=== PATIENT | male | born 1970 | race Caucasian/White ===

== ENCOUNTER → 2016-03-18 | Outpatient (CLI) | payer OTHER ==
--- NOTE | 2016-03-18 13:51 | MA ---
Diagnostic Digital Mammogram bilateral male Breast Clinical Indications: Palpable thickening 12 o'clock periareolar location left breast tissue. Technique: Routine CC and mediolateral oblique views were obtained of each breast. This examination i s processed by the [employer] computer-aided detection system. Comparison: Baseline evaluation. Breast density: A; The breasts are almost entirely fatty. Findings: CAD was reviewed. There is some thickening associated with the left areola and superior periareolar location on the lef t. There are no parenchymal masses, clusters of microcalcifications, or axillary lymphadenopathy. Impression: Mild thickening of the left areola and superior periareola along the skin. Incomplete rehana dy pending subsequent ultrasound that was performed for further characterization. BI-RADS 0
--- NOTE | 2016-03-18 14:18 | US ---
Ultrasound left upper breast male patient History: Pain superior periareolar location left breast/chest wall tissue. Findings: Ultrasound over the area of tenderness and thickening demonstrates no evidence of underlyin g mass within the superior periareolar location of the left breast tissue. The superior areola and ad jacent skin appears to be thicker on the left when compared to the right side. Impression: 1. No underlying soft tissue mass within the chest wall/breast tissue on the left. Benign findings. B I-RADS 2 2. Thickening of the skin involving the superior periareolar location on the left when compared to th e right side. The patient reports underlying psoriatic arthritis condition. Clinical followup is recommended on all palpable nodules. Despite negative or benign imaging, if the palpable abnormality increases in size, additional imaging followup may be necessary or possibly ave gical consultation. The results of this study were reviewed with the patient.
== END ==
LOC: BMCIMAGING 13:20
PROVIDERS: ATTEND Family Medicine
DX: M79.9 Soft tissue disorder, unspecified (principal); N64.4 Mastodynia; Z80.3 Family history of malignant neoplasm of breast
CPT/HCPCS: G0204

== ENCOUNTER → 2016-05-05 | Outpatient (CLI) | payer OTHER | LOC: BMCIMAGING 09:18 | PROVIDERS: ATTEND Family Medicine | DX: M79.674 Pain in right toe(s) (principal); M19.071 Primary osteoarthritis, right ankle and foot ==

== ENCOUNTER 2018-01-26 04:13 | Emergency (ER) | payer OTHER ==
[2018-01-26] MEDS ORDERED: NS 1,000 ML IV ONE (04:27)
[2018-01-26] MEDS ORDERED: ONDANSETRON 4 MG/2 ML VIAL IVP ONE (04:32)
[2018-01-26] MEDS ORDERED: HYDROmorphONE/DILAUDID 2 MG/ML INJ IVP ONE (04:32)
--- NOTE | 2018-01-26 04:35 | EDPHY ---
H & P Stated Complaint: R flank pain, poss kidney stone, frequency Time Seen by Provider: 01/26/18 04:33 HPI/ROS: HPI CHIEF COMPLAINT: Urinary frequency, urinary pressure, right flank pain. HISTORY OF PRESENT ILLNESS: 47-year-old male, history of psoriatic arthritis, takes room air, presents emergency room with right flank pain started earlier this evening rather abrupt in onset right-sided flank sharp stabbing radiating to his right lower abdomen with associated 2 episodes of nausea vomiting. No diarrhea. No fever. Also earlier date urinary frequency urinary pressure. No history of kidney stones. Denies chest pain or shortness of breath. Past Medical History: Psoriatic arthritis on Humira Past Surgical History: Denies significant surgical history Social History: Denies drugs alcohol tobacco. Family History: Noncontributory ROS REVIEW OF SYSTEMS: 10 Systems were reviewed and negative with the exception of the elements mentioned in the history of present illness. Exam Constitutional appears well nontoxic no acute distress, triage nursing summary reviewed, vital signs reviewed, awake/alert. Eyes normal conjunctivae and sclera, EOMI, PERRLA. HENT normal inspection, atraumatic, moist mucus membranes, no epistaxis, neck supple/ no meningismus, no raccoon eyes. Respiratory clear to auscultation bilaterally, normal breath sounds, no respiratory distress, no wheezing. Cardiovascular rate normal, regular rhythm, no murmur, no edema, distal pulses normal. Gastrointestinal soft, non-tender, no rebound, no guarding, normal bowel sounds, no distension, no pulsatile mass. Genitourinary mild right CVA tenderness on exam. Musculoskeletal no midline vertebral tenderness, full range of motion, no calf swelling, no tenderness of extremities, no meningismus, good pulses, neurovascularly intact. Skin pink, warm, & dry, no rash, skin atraumatic. Neurologic awake, alert and oriented x 3, AAOx3, moves all 4 extremities equally, motor intact, sensory intact, CN II-XII intact, normal cerebellar, normal vision, normal speech. Psychiatric normal mood/affect. Heme/Lymph/Immune no lymphadenopathy. Differential diagnosis includes but is not limited to and in no particular order : Bowel obstruction, appendicitis, gallbladder disease, diverticulitis, colitis , enteritis, perforated viscus, gastritis, GERD, esophagitis, urinary tract infection, pyelonephritis, kidney stones Medical Decision Making: Plan for this patient IV establishment IV fluid bolus , IV Dilaudid 0.5 mg for pain control IV Zofran for nausea, CT scan abdomen pelvis without contrast for right flank pain. Re-evaluate. Re-evaluation: CT scan abdomen pelvis without contrast shows a right-sided UVJ stone 2 x 2 mm. Upstream hydronephrosis present. Called to me by Dr. Sanchez. Patient's blood work reviewed. Unremarkable. Urinalysis shows blood but no signs of infection. Patient is resting comfortably at this time 6:00 a.m.. He has no complaints. Denies chest pain shortness of breath or back pain or abdominal pain. Comfortable this time. Prescription provided for Flomax, Tyler, Zofran. Urine strainer provided. Recommend drinking lots of fluids Recommend return emergency room if worsening abdominal pain, fever, vomiting. Source: Patient - Personal History Current Tetanus Diphtheria and Acellular Pertussis (TDAP): Yes - Medical/Surgical History Hx Asthma: No Hx Chronic Respiratory Disease: No Hx Diabetes: No Hx Cardiac Disease: No Hx Renal Disease: No Hx Cirrhosis: No Hx Alcoholism: No Hx HIV/AIDS: No Hx Splenectomy or Spleen Trauma: No Other PMH: ARthitis, GERD - Social History Smoking Status: Never smoked Constitutional: Initial Vital Signs Temperature (C) 36.7 C 01/26/18 04:24 Heart Rate 68 01/26/18 04:24 Respiratory Rate 17 01/26/18 04:24 Blood Pressure 178/125 H 01/26/18 04:24 O2 Sat (%) 98 01/26/18 04:24 O2 Delivery Mode Room Air Allergies/Adverse Reactions: sulfasalazine [Sulfasalazine] Allergy (Intermediate, Verified 01/26/18 04:23) Home Medications: Medication Instructions Recorded LORazepam [Ativan 2 mg tab] 1 mg PO 06/07/12 Omeprazole [Prilosec 10 mg] 10 mg PO DAILY 06/07/12 Vitamins Unknown 06/07/12 Hydrocodone/APAP 5/325 [Tyler 1 - 2 tab PO Q4H PRN #10 tab 01/26/18 5/325] Ondansetron HCl [Zofran] 4 mg PO Q4-6PRN PRN #10 tablet 01/26/18 Tamsulosin HCl [Flomax] 0.4 mg PO DAILY #10 cap 01/26/18 Medical Decision Making - Data Points Laboratory Results: Laboratory Results 01/26/18 04:36 01/26/18 04:36 01/26/18 01/26/18 01/26/18 04:55 04:36 04:36 WBC 5.76 10^3/uL 10^3/uL (3.80-9.50) RBC 4.90 10^6/uL 10^6/uL (4.40-6.38) Hgb 15.6 g/dL g/dL (13.7-17.5) Hct 43.5 % % (40.0-51.0) MCV 88.8 fL fL (81.5-99.8) MCH 31.8 pg pg (27.9-34.1) MCHC 35.9 g/dL g/dL (32.4-36.7) RDW 11.8 % % (11.5-15.2) Plt Count 237 10^3/uL 10^3/uL (150-400) MPV 8.9 fL fL (8.7-11.7) Neut % (Auto) 50.9 % % (39.3-74.2) Lymph % (Auto) 38.7 % % (15.0-45.0) [place] % (Auto) 8.2 % % (4.5-13.0) Eos % (Auto) 1.4 % % (0.6-7.6) Baso % (Auto) 0.5 % % (0.3-1.7) Nucleat RBC Rel Count 0.0 % % (0.0-0.2) Absolute Neuts (auto) 2.93 10^3/uL 10^3/uL (1.70-6.50) Absolute Lymphs (auto) 2.23 10^3/uL 10^3/uL (1.00-3.00) Absolute Monos (auto) 0.47 10^3/uL 10^3/uL (0.30-0.80) Absolute Eos (auto) 0.08 10^3/uL 10^3/uL (0.03-0.40) Absolute Basos (auto) 0.03 10^3/uL 10^3/uL (0.02-0.10) Absolute Nucleated RBC 0.00 10^3/uL 10^3/uL (0-0.01) Immature Gran % 0.3 % % (0.0-1.1) Immature Gran # 0.02 10^3/uL 10^3/uL (0.00-0.10) Sodium 143 mEq/L mEq/L (135-145) Potassium 3.4 mEq/L L mEq/L (3.5-5.2) Chloride 105 mEq/L mEq/L (97-110) Carbon Dioxide 26 mEq/l mEq/l (22-31) Anion Gap 12 mEq/L mEq/L (6-14) BUN 17 mg/dL mg/dL (7-23) Creatinine 1.0 mg/dL mg/dL (0.7-1.3) Estimated GFR > 60 Glucose 116 mg/dL H mg/dL (70-100) Calcium 9.1 mg/dL mg/dL (8.5-10.4) Total Bilirubin 1.2 mg/dL mg/dL (0.1-1.4) Conjugated Bilirubin 0.3 mg/dL mg/dL (0.0-0.5) Unconjugated Bilirubin 0.9 mg/dL mg/dL (0.0-1.1) AST 29 IU/L IU/L (17-59) ALT 54 IU/L IU/L (21-72) Alkaline Phosphatase 81 IU/L IU/L (38-126) Total Protein 7.3 g/dL g/dL (6.3-8.2) Albumin 4.7 g/dL g/dL (3.5-5.0) Lipase 78 IU/L IU/L (23-300) Urine Color PALE YELLOW Urine Appearance CLEAR Urine pH 8.0 H (5.0-7.5) Ur Specific [place] 1.011 (1.002-1.030) Urine Protein NEGATIVE (NEGATIVE) Urine Ketones NEGATIVE (NEGATIVE) Urine Blood 2+ H (NEGATIVE) Urine Nitrate NEGATIVE (NEGATIVE) Urine Bilirubin NEGATIVE (NEGATIVE) Urine Urobilinogen NEGATIVE EU EU (0.2-1.0) Ur Leukocyte Esterase NEGATIVE (NEGATIVE) Urine RBC 25-50 /hpf H /hpf (0-3) Urine WBC 1-3 /hpf /hpf (0-3) Ur Epithelial Cells NONE SEEN /lpf /lpf (NONE-1+) Urine Mucus TRACE /lpf /lpf (NONE-1+) Urine Glucose NEGATIVE (NEGATIVE) Medications Given: Discontinued Medications Sodium Chloride (Ns) 1,000 mls @ 0 mls/hr IV EDNOW ONE; Wide Open PRN Reason: Protocol Stop: 01/26/18 04:28 Last Admin: 01/26/18 04:37 Dose: 1,000 mls Departure - Departure Disposition: Home, Routine, Self-Care Clinical Impression: Kidney stone on right side Condition: Good Instructions: Kidney Stones (ED) Additional Instructions: 1. Drink lots of water 2. Flomax as prescribed 3. Follow-up urology 4. Strain your urine 5. Return if worse. Referrals: Gill Mcdaniel MD [Primary Care Provider] - As per Instructions Austin Powell MD [Medical Doctor] - As per Instructions Prescriptions: Hydrocodone/APAP 5/325 [Tyler 5/325] 1 - 2 tab PO Q4H PRN #10 tab PRN Reason: Pain, Moderate Ondansetron HCl [Zofran] 4 mg PO Q4-6PRN PRN #10 tablet PRN Reason: Nausea/Vomiting, Use 1st Tamsulosin HCl [Flomax] 0.4 mg PO DAILY #10 cap
[2018-01-26 04:43] LABS: PLATELET COUNT 237 10^3/uL (150-400)
[2018-01-26 06:59] VITALS: BP 153/109
== END 2018-01-26 07:02 | disposition home or self-care (01) ==
DX: N20.0 Calculus of kidney (principal); E86.9 Volume depletion, unspecified
CPT/HCPCS: 96374; J1170; J2405